=== PATIENT | female | born 2000 | race African-American/Black ===

== ENCOUNTER 2023-08-20 02:31 | Emergency (ER) | payer MEDICAID ==
[2023-08-20 03:37] VITALS: BP 142/71; PULSE 99; RESP 18; TEMP 98
== END 2023-08-20 05:21 | disposition home or self-care (01) ==
LOC: ER 02:31
DX: R00.0 Tachycardia, unspecified (principal); F22 Delusional disorders
CPT/HCPCS: 93005; 99283; Z7610